=== PATIENT | female | born 1980 | race Caucasian/White ===

== ENCOUNTER 2016-06-22 10:48 | Emergency (ER) | payer OTHER ==
[~2016-06-22] VITALS: Ht 185.4 cm; Wt 93.0 kg
[2016-06-22 10:56] VITALS: BP 127/78
--- NOTE | 2016-06-22 11:00 | NUR ---
PT AMBULATED TO BED 7 AT THIS TIME.
--- NOTE | 2016-06-22 11:01 | NUR ---
35/F BIB FAMILY C/O COUGH, AND BODY ACHES x SINCE Thursday06/16/2016. PATIENT DENIES N/V/D; SKIN IS PINK/WARM/DRY; AAOX4 WITH EVEN AND STEADY GAIT; LUNGS CONGESTED BL; HR EVEN AND REGULAR; PT DENIES ANY FEVER AT THIS TIME; PATIENT STATES PAIN OF 10/10 AT THIS TIME; VSS; PATIENT POSITIONED FOR COMFORT; HOB ELEVATED; BEDRAILS UP X2; BED DOWN. ER MD MADE AWARE OF PT STATUS.
--- NOTE | 2016-06-22 11:02 | NUR ---
Dr. Jacobson evaluating patient at bedside.
[2016-06-22 12:23] VITALS: BP 107/71
--- NOTE | 2016-06-22 12:23 | NUR ---
Patient discharged with v/s stable. Written and verbal after care instructions given and explained. Patient alert, oriented and verbalized understanding of instructions. Ambulatory with steady gait. All questions addressed prior to discharge. ID band removed. Patient advised to follow up with PMD. Rx of ZOFRAN ODT given. Patient educated on indication of medication including possible reaction and side effects. Opportunity to ask questions provided and answered.
== END 2016-06-22 12:23 | disposition home or self-care (01) ==
LOC: MED 10:48
DX: J06.9 Acute upper respiratory infection, unspecified (principal); R11.2 Nausea with vomiting, unspecified; I10 Essential (primary) hypertension; F41.9 Anxiety disorder, unspecified; Z91.02 Food additives allergy status; Z88.6 Allergy status to analgesic agent
CPT/HCPCS: 36415; 71010; 87804; 99285; Q0092

== ENCOUNTER 2022-05-07 07:15 | Emergency (ER) | payer OTHER ==
[~2022-05-07] VITALS: Ht 185.4 cm; Wt 95.7 kg
[2022-05-07 07:15] VITALS: BP 144/74
--- NOTE | 2022-05-07 07:15 | NUR ---
pt to bed
--- NOTE | 2022-05-07 07:30 | NUR ---
41/f walked in c/o back pain onset today. denies taking any meds today. pt reports worse when walking. denies fall or injury. 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
[2022-05-07] MEDS: MORPHINE SULFATE 4 MG/ML SYR IM ONE ×2 (08:26→09:41)
[2022-05-07] MEDS: KETOROLAC 60 MG/2 ML VIAL IM ONE (08:26)
--- NOTE | 2022-05-07 08:26 | NUR ---
URINE COLLECTED AND SENT TO LAB
[2022-05-07 09:09] LABS: APPEARANCE,URINE CLEAR (CLEAR); BILIRUBIN,URINE NEGATIVE (NEGATIVE); BLOOD, URINE NEGATIVE (NEGATIVE); COLOR,URINE YELLOW (YELLOW); LEUKOCYTE ESTERASE ,URINE NEGATIVE (NEGATIVE); NITRITE, URINE NEGATIVE (NEGATIVE); PH,URINE 6.5 (5.0-9.0); UGLUCOSE NEGATIVE (NEGATIVE)
--- NOTE | 2022-05-07 09:20 | NUR ---
PT C/O PAIN. ERMD NOTIFIED.
[2022-05-07] MEDS ORDERED: NAPR-54 PO (10:14)
[2022-05-07 10:20] VITALS: BP 134/65
== END 2022-05-07 10:20 | disposition home or self-care (01) ==
LOC: MED 07:15
DX: S33.5XXA Sprain of ligaments of lumbar spine, initial encounter (principal); I10 Essential (primary) hypertension; F41.9 Anxiety disorder, unspecified; Z87.448 Personal history of other diseases of urinary system; Z79.1 Long term (current) use of non-steroidal anti-inflammatories (NSAID); Z88.8 Allergy status to other drugs, medicaments and biological substances; Z91.018 Allergy to other foods; X58.XXXA Exposure to other specified factors, initial encounter; Y92.89 Other specified places as the place of occurrence of the external cause; Y93.89 Activity, other specified; Y99.8 Other external cause status
CPT/HCPCS: 81003; 96372; 99284; J1885; J2270

== ENCOUNTER 2023-07-13 03:00 | Emergency (ER) | payer OTHER ==
[~2023-07-13] VITALS: Ht 185.4 cm; Wt 90.7 kg
[~2023-07-13 03:00] MED LIST: NAPR-337 PO
[2023-07-13 03:05] VITALS: BP 124/94; PULSE 90; RESP 16; TEMP 97.6; O2SAT 96
[2023-07-13] MEDS: NACL 0.9% 1,000 ML IV ONE (03:36)
[2023-07-13] MEDS: DICYCLOMINE 20 MG/2 ML VIAL IM ONE (03:37)
[2023-07-13 03:55] LABS: BASOPHILS % (AUTO) 0.1 % (0.0-2.0); HEMATOCRIT 42.5 % (36-48); HEMOGLOBIN 14.8 g/dL (12.0-16.0); LYMPHOCYTES # (AUTO) 0.3 K/uL (2.5-16.5); LYMPHOCYTES % (AUTO) 1.6 % (20.5-51.1); MEAN CORPUSCULAR HEMOGLOBIN 32 pg (27-31); MEAN CORPUSCULAR HGB CONC 35 g/dL (33-37); MEAN CORPUSCULAR VOLUME 91.8 fL (80-94); MONOCYTES # (AUTO) 0.4 K/uL (0.8-1.0); MONOCYTES % (AUTO) 2.1 % (1.7-9.3); NEUTROPHILS % (AUTO) 96.2 % (42.2-75.2); PLATELET COUNT (AUTO) 217 K/uL (140-450); RED BLOOD CELL COUNT(AUTO) 4.63 MIL/uL (4.20-5.40); RED CELL DISTRIBUTION WIDTH 12.4 % (11.6-13.7); WHITE BLOOD COUNT (AUTO) 18.7 K/uL (4.8-10.8)
[2023-07-13 04:20] LABS: CALCIUM 9.2 mg/dL (8.5-10.1); CARBON DIOXIDE 24.2 mmol/L (21-32); CREATININE 0.8 mg/dL (0.6-1.3); POTASSIUM 3.2 mmol/L (3.5-5.1)
[2023-07-13 04:26] LABS: ALBUMIN 4.2 g/dL (3.4-5.0); BILIRUBIN,DIRECT 0.1 mg/dL (0.0-0.3); TOTAL BILIRUBIN 0.7 mg/dL (0.0-1.0); TOTAL PROTEIN, SERUM 7.6 g/dL (6.4-8.2)
[2023-07-13] MEDS: POTASSIUM CHLORIDE 10 MEQ TABER PO ONE (04:46)
[2023-07-13] MEDS: METOCLOPRAMIDE 10 MG/2 ML INJ VIAL IVP ONE (05:09)
[2023-07-13] MEDS ORDERED: METO-486 PO (05:35)
[2023-07-13 05:41] VITALS: BP 128/88; PULSE 86; RESP 16; TEMP 97.6; O2SAT 96
== END 2023-07-13 05:41 | disposition home or self-care (01) ==
LOC: MED 03:00
DX: A08.4 Viral intestinal infection, unspecified (principal); I10 Essential (primary) hypertension; Z90.710 Acquired absence of both cervix and uterus; Z79.1 Long term (current) use of non-steroidal anti-inflammatories (NSAID); Z79.899 Other long term (current) drug therapy; Z91.018 Allergy to other foods
CPT/HCPCS: 36415; 80048; 80076; 83690; 85025; 96361; 96372; 96374; 99284; J0500; J2765; J7030; 99283